=== PATIENT | male | born 1965 | race African-American/Black ===

== ENCOUNTER 2019-04-01 11:20 | Emergency (ER) | payer BC ==
[~2019-04-01] VITALS: Ht 182.9 cm; Wt 120.9 kg
[2019-04-01] MEDS ORDERED: SPIRONOLACTONE25 MG PO (11:35)
[2019-04-01] MEDS ORDERED: CARVEDILOL12.5 MG PO (11:35)
[2019-04-01] MEDS ORDERED: BUMETANIDE 1 MG1 M1 PO (11:36)
[2019-04-01] MEDS ORDERED: ASA81BEC PO (11:36)
[2019-04-01] MEDS ORDERED: PRINIVIL20 M1 PO (11:37)
[2019-04-01] MEDS ORDERED: LIPITOR40 MG PO (11:37)
[2019-04-01 12:47] LABS: ABSOLUTE NEUTROPHILS 4.7 thou/uL (1.4-8.2); BASOPHILS 0.5 % (0.0-2.0); EOSINOPHILS 2.4 % (0.0-3.0); HEMATOCRIT 39.5 % (42.0-52.0); HEMOGLOBIN 12.9 gm/dL (14.0-18.0); MCH 30.7 pg (26.0-34.0); MCHC 32.5 g/dL (28.0-37.0); MCV 94.6 fL (80.0-100.0); MONOCYTES 9.7 % (1.0-8.0); PLATELET COUNT 166 thou/uL (150-400); POLYS 65.4 % (36.0-66.0); RBC 4.18 mil/uL (4.50-6.00); RDW 14.8 % (10.5-14.5); WBC 7.1 thou/uL (4.0-11.0)
[2019-04-01 12:53] LABS: ANION GAP 6 mmol/L (7-16); BUN 19 mg/dL (7-18); CHLORIDE 104 mmol/L (98-107); CO2 32 mmol/L (21-32); CREATININE 1.6 mg/dL (0.7-1.3); GLUCOSE 118 mg/dL (74-106); POTASSIUM 3.4 mmol/L (3.5-5.1); SODIUM 142 mmol/L (136-145)
[2019-04-01 12:55] LABS: APTT 28.4 Seconds (24.5-32.8); INR 1.2; PROTIME 12.2 Seconds (9.3-11.4)
[2019-04-01 13:04] LABS: ALBUMIN 3.3 g/dL (3.4-5.0); MAGNESIUM 1.8 mg/dL (1.8-2.4); SGOT 40 U/L (15-37); SGPT 86 U/L (30-65); TOTAL PROTEIN 6.5 g/dL (6.4-8.2); TROPONIN-I <0.06 ng/mL (<0.06)
--- NOTE | 2019-04-01 15:04 | EKG ---
[facility] [place] [address] ELECTROCARDIOGRAM REPORT Name: JANAYANTONIA Room #: [facility] [id number] Admission: 04/01/19 Attend Phys: Discharge: Date of : 65 Report #: [id number] THIS REPORT FOR: //name// [facility] ED Test Date: 2019-04-01 Test Time: 12:14:45 Pat Name: ANTONIA GUSTAFSON Department: Room: Gender: Resident Director: [facility] : 1965 Requested By: Myles Green Order Number: [id number] MD: Sha Gonzalez Measurements Intervals [place] Rate: 69 P: 43 TX: 211 QRS: 57 QRSD: 200 T: 246 QT: 496 QTc: 532 Interpretive Statements Sinus rhythm Prolonged [place] interval Probable left atrial enlargement Left bundle branch block No previous ECG available for comparison Electronically Signed On 04-01-2019 15:03:28 [employer] by Sha Gonzalez [email or web address] <ELECTRONICALLY SIGNED> By: Sha Gonzalez MD 04/01/19 1503 1214 1214 MD GRETTA Fuller
[2019-04-01] MEDS ORDERED: VENTOLIN HFA 1818 GM INH (15:13)
[2019-04-01 16:10] VITALS: BP 139/72
[2019-04-01 16:20] LABS: DIRECT BILIRUBIN 0.4 mg/dL (<0.1-0.2); TOTAL BILIRUBIN 2.7 mg/dL (<0.1-1.0)
== END 2019-04-01 16:30 | disposition home or self-care (01) ==
LOC: ER 11:20
PROVIDERS: Emergency Medicine
DX: I11.0 Hypertensive heart disease with heart failure (principal); I50.9 Heart failure, unspecified; R60.0 Localized edema; R06.00 Dyspnea, unspecified; R79.89 Other specified abnormal findings of blood chemistry